=== PATIENT | male | born 1990 | race Caucasian/White ===

== ENCOUNTER 2016-10-30 14:43 | Emergency (ER) | payer OTHER ==
[2016-10-30 15:02] VITALS: BP 141/81; PULSE 75; RESP 16; TEMP 98.1; O2SAT 95
--- NOTE | 2016-10-30 15:24 | EDPHY ---
H & P Time Seen by Provider: 10/30/16 15:07 HPI/ROS: CHIEF COMPLAINT: Right foot injury HISTORY OF PRESENT ILLNESS: 26 year old male presents to the emergency department reporting that yesterday, while at work, he injured his right foot. He is not exactly sure of the mechanism. Sounds like the foot went into a opening on the underside of a metal cart. It was scraped as well as twisted slightly. He is complaining of pain across the dorsum of his foot as well as on the plantar surface. No pain at the ankle. He did not fall. Pain is worse with movement and with weight-bearing. Otherwise well. REVIEW OF SYSTEMS: Aside from elements discussed in the HPI, a comprehensive 10-point review of systems was reviewed and is negative. PAST MEDICAL HISTORY: Patient was born quite flat-footed. SOCIAL HISTORY: Nonsmoker. Injury occurred on the job. GENERAL APPEARANCE: Alert, no obvious distress. FOCUSED EXAM OF right lower extremity: No deformities noted. No swelling. Superficial ecchymosis on the dorsum of the foot. Moderate tenderness to across the dorsum of the foot, particularly over the 2nd metatarsal. Some tenderness to palpation in the head of the 5th metatarsal. No ankle tenderness. No discomfort with range of motion at the ankle. Normal sensation. Brisk capillary refill. Of note the patient has very flat feet. Smoking Status: Never smoked Constitutional: Initial Vital Signs Temperature (C) 36.7 C 10/30/16 14:57 Heart Rate 75 10/30/16 14:57 Respiratory Rate 16 10/30/16 14:57 Blood Pressure 141/81 H 10/30/16 14:57 O2 Sat (%) 95 10/30/16 14:57 O2 Delivery Mode Room Air Allergies/Adverse Reactions: No Known Allergies Allergy (Unverified 10/30/16 14:59) Home Medications: Medication Instructions Recorded NK [No Known Home Meds] 10/30/16 Medical Decision Making - Diagnostics Imaging Results: Imaging Impressions Foot X-Ray 10/30/16 15:00 Impression: Normal foot series. Imaging: I viewed and interpreted images myself ED Course/Re-evaluation: 26-year-old male with a injury to his right foot which occurred on the job last night. Sounds like there was both a compression as well as potential twisting injury of the foot. No fractures are seen. Patient was advised to use an Latrell wrap and weightbear as tolerated. He will be off work tomorrow. He will follow up with workman's compensation if he is unable to return to his normal duties in 2 days. Differential Diagnosis: Differential diagnosis for the patient's injury was considered including but not limited to contusion, abrasion, laceration, fracture, open fracture, or dislocation. Departure - Departure Disposition: Home, Routine, Self-Care Clinical Impression: Foot pain, right, Foot sprain Condition: Good Instructions: Foot Sprain (ED) Additional Instructions: Mainstay of therapy is rest, ice, immobilization, elevation, and nonsteroidal anti-inflammatories for pain and to decrease swelling. Apply ice for 20-30 minutes every 2-3 hours for the next 24 hours. I recommend Ibuprofen (Motrin, Advil) or Naproxen Sodium (Aleve) for pain and anti-inflammatory effects. You may take either one, but do not take both. Your dose is: Ibuprofen 600 mg every 6-8 hours with food. OR Naproxen Sodium (Aleve) 220 mg every 12 hours. Off work tomorrow. You may return to work on Sunday. If you are unable to do your normal duties, please follow up with workman's compensation physician. Please check with her employer regarding appropriate follow-up. Referrals: NONE *PRIMARY CARE P,. [Primary Care Provider] - As per Instructions Stand Alone Forms: Work Comp Follow Up, Work Excuse
== END 2016-10-30 15:27 | disposition home or self-care (01) ==
LOC: CED 14:43
DX: S93.601A Unspecified sprain of right foot, initial encounter (principal); W01.0XXA Fall on same level from slipping, tripping and stumbling without subsequent striking against object, initial encounter; Y92.69 Other specified industrial and construction area as the place of occurrence of the external cause; Y99.0 Civilian activity done for income or pay; Y93.89 Activity, other specified
CPT/HCPCS: 73630-PO